=== PATIENT | female | born 1975 | race African-American/Black ===

== ENCOUNTER 2016-07-16 12:40 | Inpatient (IN) | payer MEDICAID ==
[~2016-07-16] VITALS: Ht 175.3 cm; Wt 112.9 kg
[2016-07-16] MEDS: Heparin 5000 units/ml inj SUBQ SCH ×2 (09:00→21:00)
[~2016-07-16 12:40] MED LIST: CATAPRES0.1 MG ORAL; CLINDAMYCIN HC300 MG ORAL; COZAAR50 MG ORAL; IBUPROFEN800 MG ORAL; MOM30 ML ORAL; POTASSIUM CHLO20 ME1 ORAL; POVIDONE IODINE TOPIC; TYLENOL650 MG/20. ORAL; VANCOMYCIN1 GM/2502 IVPB; ZOSYN 3.373.375 GM/1 IVPB
[2016-07-16] MEDS ORDERED: NKM (12:52)
--- NOTE | 2016-07-16 13:42 | Emergency Room Report ---
History of Present Illness General Chief Complaint: Pain Source: Patient (SOM ABRAHAM M.D.) Present Illness HPI 41 YO F with bilateral lower extremity swelling for 10 days. Associated with pain, extreme dried/flakey skin, painful ambulation. Denies fever/chills, rash/ redness to extremities. Had previous history of osteomyelitis per TEGAN, patient states she was tx with Abx. She other finley denies chest pain, SOB, abd pain,. urinary complaints. Doesnt take any medications. Denies ETOH, drug abuse. (SOM ABRAHAM M.D.) Allergies: Coded Allergies: No Known Allergies (Verified Allergy, Unknown, 01/01/11) Patient History Past Medical History: other - osteomyelitis Past Surgical History: none Pertinent Family History: none Social History: Denies: alcohol use, drug use, smoking Last Menstrual Period: no cycle for 2 years Now: No - tubaligation : 9 Para: 1 Immunizations: UTD Reviewed Nursing Documentation: PMH: Agreed, PSxH: Agreed (SOM ABRAHAM M.D.) Reviewed Nursing Documentation: PMH: Agreed, PSxH: Agreed (Jack Barros) Nursing Documentation-PMH Hx Cardiac Problems: Yes Hx Hypertension: Yes Hx Pacemaker: No - LOW POTASSIUM, UTI Hx Asthma: No - Anemia Hx Cancer: No Hx Gastrointestinal Problems: No Hx Neurological Problems: No (SOM ABRAHAM M.D.) Review of Systems All Other Systems: negative except mentioned in HPI (SOM ABRAHAM M.D.) Physical Exam Vital Signs Date Time Temp Pulse Resp B/P Pulse Ox O2 Delivery O2 Flow Rate FiO2 07/16/16 12:42 98.1 115 14 145/94 98 Room Air Sp02 EP Interpretation: reviewed, abnormal General Appearance: normal inspection, well appearing, no apparent distress, alert, GCS 15, non-toxic, obese Head: normocephalic, atraumatic Eyes: bilateral eye EOMI, bilateral eye PERRL ENT: normal ENT inspection, hearing grossly normal, normal voice Neck: normal inspection, full range of motion, supple, no bony tend Respiratory: normal inspection, lungs clear, normal breath sounds, no rhonchi, no respiratory distress, no retraction, no accessory muscle use, no wheezing Cardiovascular #1: regular rate, rhythm, no edema Gastrointestinal: normal inspection, normal bowel sounds, non tender, soft, no guarding, no hernia Genitourinary: no CVA tenderness Musculoskeletal: normal inspection, back normal, normal range of motion, Thai' s Sign negative Neurologic: normal inspection, alert, oriented x3, responsive, route manager III-XII nml as tested, motor strength/tone normal, DTRs symmetric, cerebellar normal, normal gait, speech normal Skin: other - Bilateral lower extremities: Hardness/flakey/dry skin from below knees including whole of lower extremities/feet. ?lack of 2-point discrimination to soles of feet. No difference in appreciable warmth across extremities. No pitting edema. No sign of cellulitis. (SOM ABRAHAM M.D.) Medical Decision Making Diagnostic Impression: Primary Impression: Swelling of both lower extremities ER Course 41YO F with bilateral lower extremity swelling for 10 days. VS notable for tachycardia. Afebrile. 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 Patient continued to have some difficulty breathing. The patient was admitted to the hospital for further treatment. (Jack Barros) EKG Diagnostic Results Rate: tachycardiac Rhythm: NSR ST Segments: no acute changes (SOM ABRAHAM M.D.) Rhythm Strip Diag. Results EP Interpretation: yes Rate: 110 Rhythm: NSR, no PVC's, no ectopy (SOM ABRAHAM M.D.) Last Vital Signs Date Time Temp Pulse Resp B/P Pulse Ox O2 Delivery O2 Flow Rate FiO2 07/16/16 12:42 98.1 115 14 145/94 98 Room Air Status: improved (SOM ABRAHAM M.D.) Status: unchanged (Jack Barros) Disposition: ADMITTED INPATIENT Condition: Serious Referrals: [facility],REFERRING (PCP) SOM ABRAHAM M.D. Jul 16, 2016 13:42 Jack Barros Jul 16, 2016 19:17
[2016-07-16 15:57] LABS: MEAN CORPUSCULAR HEMOGLOBIN 33.9 PG (27.0-31.0); MEAN CORPUSCULAR HGB CONC 31.5 G/DL (32.0-36.0); MEAN CORPUSCULAR VOLUME 108 FL (80-99); MEAN PLATELET VOLUME 7.7 FL (6.5-10.1); PLATELET COUNT 79 K/UL (150-450); RED BLOOD COUNT 2.37 M/UL (4.20-5.40); RED CELL DISTRIBUTION WIDTH 20.7 % (11.6-14.8); WHITE BLOOD COUNT 7.7 K/UL (4.8-10.8)
[2016-07-16 16:30] LABS: ALANINE AMINOTRANSFERASE 12 U/L (3-33); ALBUMIN/GLOBULIN RATIO 0.8 (1.0-2.7); ANION GAP 21 (5-15); ASPARTATE AMINO TRANSFERASE 65 U/L (5-40); CALCIUM 8.5 mg/dL (8.6-10.2); CARBON DIOXIDE 25 mEQ/L (20-30); CHLORIDE 93 mEQ/L (98-107); CREATININE 0.6 mg/dL (0.5-0.9); GLOMERULAR FILTRATION RATE > 60 mL/min (>60); HEMOLYSIS 3; POTASSIUM 3.8 mEQ/L (3.4-4.9); SODIUM 139 mEQ/L (135-145); TOTAL PROTEIN 6.6 g/dL (6.6-8.7)
[2016-07-16 16:41] LABS: CKMB < 1.5 ng/mL (< 3.8)
[2016-07-16 17:16] VITALS: BP 123/73
[2016-07-16 17:24] LABS: ANISOCYTOSIS 2+; EOSINOPHILS % (MANUAL) 1 % (0-3); HYPOCHROMASIA 2+; LYMPHOCYTES % (MANUAL) 33 % (20-45); MACROCYTES 1+; NEUTROPHILS % (MANUAL) 61 % (45-75); TOTAL CELLS COUNTED 100
[2016-07-16 17:25] LABS: BAND NEUTROPHILS % (MANUAL) 0 % (0-8); BASOPHILS % (MANUAL) 0 % (0-2); PLATELET ESTIMATE DECREASED; PLATELET MORPHOLOGY NORMAL
[2016-07-16 18:15] VITALS: BP 117/61
[2016-07-16] MEDS ORDERED: Mylanta II UD 30ml ORAL PRN (21:00)
[2016-07-16] MEDS ORDERED: Miralax 17gm pkt ORAL PRN (21:00)
[2016-07-16] MEDS ORDERED: Zolpidem 5mg tab ORAL PRN (21:00)
[2016-07-16] MEDS ORDERED: Morphine Sulfate 2mg/ml Inj IVP PRN (21:00)
[2016-07-16] MEDS ORDERED: LORazepam Inj 2mg/ml 1ml IV PRN (21:00)
[2016-07-16] MEDS ORDERED: Cefepime HCl 1 GM in D5W 55 ML IV SCH (22:30)
[2016-07-16] MEDS ORDERED: Vancomycin 1250mg in D5W 275ml IVPB SCH (22:30)
[2016-07-16] MEDS ORDERED: Cefepime 1gm vial ONE (23:25)
[2016-07-17] VITALS: BP 135/68
[2016-07-17 04:00] VITALS: BP 149/82
[2016-07-17] MEDS ORDERED: Vancomycin 1250mg in D5W 275ml IVPB SCH (08:00)
[2016-07-17] MEDS ORDERED: Cefepime HCl 1 GM in D5W 55 ML IV SCH (08:00)
[2016-07-17 08:30] VITALS: BP 133/64
[2016-07-17] MEDS: Heparin 5000 units/ml inj SUBQ SCH ×2 (09:00→21:00)
[2016-07-17] MEDS: Cefepime HCl 1 GM in D5W 55 ML IV SCH ×2 (09:10→16:58)
[2016-07-17] MEDS: Vancomycin 1250mg in D5W 275ml IVPB SCH ×2 (09:52→18:00)
--- NOTE | 2016-07-17 10:03 | Cardiology Report ---
APPROVED REPORT EKG Measurement Heart [id number] Sinus tachycardia Incomplete right bundle branch block Borderline ECG
--- NOTE | 2016-07-17 11:41 | Diagnostic Imaging Report ---
Indication: Chest Pain Comparison: 01/05/11 A single view chest radiograph was obtained. Findings: Cardiomediastinal appearance is within normal limits for age. Pulmonary vascularity is appropriate. The diaphragmatic contour is smooth and costophrenic angles are sharp. No pleural effusions are identified. The bones are unremarkable. Impression: No acute findings
[2016-07-17 12:35] VITALS: BP 140/72
--- NOTE | 2016-07-17 13:31 | Consultation ---
Consult Note Consult Note ID CONSULT: Dict# [id number] Assessment/Plan ASSESSMENT: 41 y/o female with: // BLE cellulitis r/o osteomyelitis - h/o multifocal BLE osteomyelitis 10/2015, left AMA, did not complete Rx // Acute on chronic BLE lymphedema - a/v doppler: neg DVT or stenosis // Afebrile without leukocytosis // Thrombocytopenia // Negative HIV // NKDA // Full Code PLAN: - continue IV vancomycin, cefepime d# , transition to PO alternative once clinically improved - check ESR, CRP - monitor CBC, temperatures, canseco-culture if acute change - monitor BMP - BLE elevation, compression Thanks! Will follow KELY MOORE Jul 17, 2016 13:31
[2016-07-17] MEDS ORDERED: chlordiazePOXIDE 25mg Cap ORAL PRN (13:45)
--- NOTE | 2016-07-17 13:54 | History and Physical ---
History of Present Illness General Date patient seen: Jul 17, 2016 Reason for Hospitalization: Pain Present Illness HPI 41 year old female with hx of ETOH abuse presented to ER with bilateral lower extremity swelling for 10 days. Denies fever/chills, rash/redness to extremities. She had previous history of osteomyelitis. she left ama lest admission Allergies: Coded Allergies: No Known Allergies (Verified Allergy, Unknown, 01/01/11) Medication History Scheduled Clindamycin Hcl (Clindamycin Hcl), 300 MG ORAL THREE TIMES A DAY Losartan Potassium* (Cozaar*), 50 MG ORAL Q12HR, (Reported) No Known Medications* (NKM - No Known Medications*), 0 ., (Reported) Scheduled PRN Acetaminophen (Acetaminophen), 500 MG ORAL Q6H PRN for Prn Headache/Temp > 101, (Reported) Patient History Healthcare decision maker pt alert and oriented Resuscitation status Advanced Directive on File Review of Systems All Other Systems: negative except mentioned in HPI Physical Exam General Appearance: WD/WN Lines, tubes and drains: peripheral HEENT: normocephalic, atraumatic Neck: non-tender, normal alignment Respiratory/Chest: chest wall non-tender, lungs clear Cardiovascular/Chest: normal peripheral pulses, normal rate Abdomen: normal bowel sounds, non tender Extremities: severe edema, pitting Neurologic: historic preservationist II-XII grossly normal Last 24 Hour Vital Signs Date Time Temp Pulse Resp B/P Pulse Ox O2 Delivery O2 Flow Rate FiO2 07/17/16 12:35 99.3 75 20 140/72 95 Room Air 07/17/16 08:30 99.5 140 20 133/64 95 Room Air 07/17/16 08:00 114 07/17/16 04:00 114 07/17/16 04:00 115 20 149/82 98 Room Air 07/17/16 00:00 126 20 135/68 96 Room Air 07/17/16 00:00 127 07/16/16 22:36 116 23 118/68 99 Nasal Cannula 2.0 07/16/16 18:15 115 25 117/61 100 Nasal Cannula 2.0 07/16/16 17:16 120 17 123/73 100 Nasal Cannula 2.0 Intake and Output 07/16/16 07/17/16 19:00 07:00 Intake Total 886 ml Balance 886 ml Intake Oral 300 ml IV Total 586 ml # Voids 1 3 Laboratory Tests Test 07/16/16 15:45 White Blood Count 7.7 K/UL (4.8-10.8) Red Blood Count 2.37 M/UL (4.20-5.40) L Hemoglobin 8.5 G/DL (12.0-16.0) L Hematocrit 25.5 % (37.0-47.0) L Mean Corpuscular Volume 108 FL (80-99) H Mean Corpuscular Hemoglobin 33.9 PG (27.0-31.0) H Mean Corpuscular Hemoglobin Concent 31.5 G/DL (32.0-36.0) L Red Cell Distribution Width 20.7 % (11.6-14.8) H Platelet Count 79 K/UL (150-450) L Mean Platelet Volume 7.7 FL (6.5-10.1) Neutrophils (%) (Auto) % (45.0-75.0) Lymphocytes (%) (Auto) % (20.0-45.0) Monocytes (%) (Auto) % (1.0-10.0) Eosinophils (%) (Auto) % (0.0-3.0) Basophils (%) (Auto) % (0.0-2.0) Differential Total Cells Counted 100 Neutrophils % (Manual) 61 % (45-75) Lymphocytes % (Manual) 33 % (20-45) Monocytes % (Manual) 5 % (1-10) Eosinophils % (Manual) 1 % (0-3) Basophils % (Manual) 0 % (0-2) Band Neutrophils 0 % (0-8) Platelet Estimate Decreased L Platelet Morphology Normal Hypochromasia 2+ Anisocytosis 2+ Macrocytosis 1+ Sodium Level 139 mEQ/L (135-145) Potassium Level 3.8 mEQ/L (3.4-4.9) Chloride Level 93 mEQ/L (98-107) L Carbon Dioxide Level 25 mEQ/L (20-30) Anion Gap 21 (5-15) H Blood Urea Nitrogen 5 mg/dL (7-23) L Creatinine 0.6 mg/dL (0.5-0.9) Estimat Glomerular Filtration Rate > 60 mL/min (>60) Glucose Level 65 mg/dL (74-106) L Calcium Level 8.5 mg/dL (8.6-10.2) L Total Bilirubin 0.9 mg/dL (0.0-1.2) Aspartate Amino Transf (AST/SGOT) 65 U/L (5-40) H Alanine Aminotransferase (ALT/SGPT) 12 U/L (3-33) Alkaline Phosphatase 284 U/L (35-104) H Total Creatine Kinase 50 U/L (26-140) Creatine Kinase MB < 1.5 ng/mL (< 3.8) Creatine Kinase MB Relative Index Pro-B-Type Natriuretic Peptide 55 pg/mL (0-125) Total Protein 6.6 g/dL (6.6-8.7) Albumin 3.1 g/dL (3.5-5.2) L Globulin 3.5 g/dL Albumin/Globulin Ratio 0.8 (1.0-2.7) L Height (Feet): 5 Height (Inches): 9.00 Weight (Pounds): 249 Medications Current Medications Medications (Trade) Dose Ordered Sig/Kayla Route PRN Reason Start Time Stop Time Status Last Admin Dose Admin Acetaminophen (Tylenol) 650 mg Q4H PRN ORAL fever 07/16/16 21:00 08/15/16 20:59 Al Hydroxide/Mg Hydroxide (Mylanta II) 30 ml Q6H PRN ORAL dyspepsia 07/16/16 21:00 08/15/16 20:59 Cefepime HCl 1 gm/ Dextrose 55 ml @ 110 mls/hr Q8H IV 07/17/16 09:00 07/24/16 08:59 07/17/16 09:10 Dextrose (Dextrose 50%) STAT PRN IV Hypoglycemia 07/16/16 21:00 08/15/16 20:59 Heparin Sodium (Porcine) (Heparin 5000 units/ml) 5,000 units EVERY 12 HOURS SUBQ 07/16/16 09:00 08/15/16 08:59 Lorazepam (Ativan 2mg/ml 1ml) 0.5 mg Q4H PRN IV For Anxiety 07/16/16 21:00 07/23/16 20:59 Morphine Sulfate (Morphine Sulfate) 1 mg EVERY 4 HOURS PRN IVP For Pain 07/16/16 21:00 07/23/16 20:59 Ondansetron HCl (Zofran) 4 mg Q6H PRN IVP Nausea & Vomiting 07/16/16 21:00 08/15/16 20:59 Polyethylene Glycol (Miralax) 17 gm HSPRN PRN ORAL Constipation 07/16/16 21:00 08/15/16 20:59 Vancomycin HCl 1 ea 1 ea DAILY PRN MISC Per rx protocol 07/16/16 21:00 08/15/16 20:59 Vancomycin HCl/ Dextrose (Vancomycin/D5W) 275 ml @ 183.708 mls/hr Q8H IVPB 07/17/16 10:00 07/22/16 09:59 07/17/16 09:52 Zolpidem Tartrate (Ambien) 5 mg HSPRN PRN ORAL Insomnia 07/16/16 21:00 08/15/16 20:59 Assessment/Plan Problem List: (1) Severe anemia ICD Codes: D64.9 - Anemia, unspecified SNOMED: 324206736 (2) Tachycardia ICD Codes: R00.0 - Tachycardia, unspecified SNOMED: 8663977 (3) ETOH abuse ICD Codes: F10.10 - Alcohol abuse, uncomplicated SNOMED: 82506618, 06171944 (4) Cellulitis ICD Codes: L03.90 - Cellulitis SNOMED: 345130103 Assessment/Plan get echo IV antibiotics ID evaluation anemia w/u. DEA HOLT Jul 17, 2016 13:54
[2016-07-17] MEDS ORDERED: Vitamin B12 1000mcg/ml Inj IM ONE (14:00)
[2016-07-17 16:00] VITALS: BP 153/75
[2016-07-17 16:29] LABS: MEAN CORPUSCULAR HEMOGLOBIN 34.4 PG (27.0-31.0); MEAN CORPUSCULAR HGB CONC 31.1 G/DL (32.0-36.0); MEAN CORPUSCULAR VOLUME 111 FL (80-99); MEAN PLATELET VOLUME 7.2 FL (6.5-10.1); PLATELET COUNT 91 K/UL (150-450); RED BLOOD COUNT 2.15 M/UL (4.20-5.40); RED CELL DISTRIBUTION WIDTH 20.3 % (11.6-14.8); WHITE BLOOD COUNT 7.4 K/UL (4.8-10.8)
[2016-07-17 16:45] LABS: HEMOGLOBIN A1C 4.6 % (< 6.0)
[2016-07-17 16:51] LABS: ALANINE AMINOTRANSFERASE 16 U/L (3-33); ALBUMIN/GLOBULIN RATIO 0.8 (1.0-2.7); ANION GAP 19 (5-15); ASPARTATE AMINO TRANSFERASE 112 U/L (5-40); CALCIUM 8.4 mg/dL (8.6-10.2); CARBON DIOXIDE 26 mEQ/L (20-30); CHLORIDE 92 mEQ/L (98-107); CHOLESTEROL 153 mg/dL (< 200); CHOLESTEROL/HDL RATIO 2.4 (3.3-4.4); CREATININE 0.7 mg/dL (0.5-0.9); GLOMERULAR FILTRATION RATE > 60 mL/min (>60); HEMOLYSIS 22; LDL CHOLESTEROL (CALC.) 60 mg/dL (60-99); POTASSIUM 3.8 mEQ/L (3.4-4.9); SODIUM 137 mEQ/L (135-145); TOTAL PROTEIN 6.6 g/dL (6.6-8.7)
[2016-07-17 16:53] LABS: HEMOLYSIS 237; IRON 85 ug/dL (37-145); TOTAL IRON BINDING CAPACITY 278 ug/dL (250-400)
[2016-07-17 17:32] LABS: BILIRUBIN,DIRECT 0.8 mg/dL (0.1-0.3)
[2016-07-17 18:16] LABS: BAND NEUTROPHILS % (MANUAL) 1 % (0-8); LYMPHOCYTES % (MANUAL) 23 % (20-45); NEUTROPHILS % (MANUAL) 71 % (45-75); TOTAL CELLS COUNTED 100
[2016-07-17 18:17] LABS: ANISOCYTOSIS 2+; HYPOCHROMASIA 1+; MACROCYTES 1+
[2016-07-17 18:18] LABS: BASOPHILS % (MANUAL) 0 % (0-2); EOSINOPHILS % (MANUAL) 0 % (0-3); PLATELET ESTIMATE DECREASED; PLATELET MORPHOLOGY NORMAL
--- NOTE | 2016-07-17 19:18 | Consultation ---
DATE OF CONSULTATION: 07/17/2016 INFECTIOUS DISEASE CONSULTATION REQUESTING PHYSICIAN: Keesha Fox M.D. REASON FOR CONSULTATION: Cellulitis. HISTORY OF PRESENT ILLNESS: This is a 41-year-old female with a history of chronic bilateral lower extremity lymphedema admitted on 07/16/2016 with acute on chronic bilateral lower extremity swelling and pain associated erythema and warmth. No fevers or leukocytosis. No cultures have been sent. Arterial and venous Dopplers are negative for DVT or stenosis. She has been started on empiric vancomycin and cefepime for probable cellulitis and ID is now consulted to assist in management. PAST MEDICAL HISTORY: 1. Chronic bilateral lower extremity lymphedema. 2. Hypertension. 3. Chronic anemia. 4. History of bilateral lower extremity osteomyelitis in 10/2015 for which she left against medical advice and did not complete treatment. 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 ALLERGIES: No known drug allergies. MEDICATIONS: 1. Vancomycin. 2. Cefepime. 3. Subcutaneous heparin. FAMILY HISTORY: Noncontributory. SOCIAL HISTORY: The patient has a history of tobacco abuse. She has family involved in her care. REVIEW OF SYSTEMS: As per history of present illness. Ten systems reviewed. All pertinent positives and negatives noted. PHYSICAL EXAMINATION: VITAL SIGNS: Maximum temperature 99.5 degrees, blood pressure 140/72, heart rate in the 70s, respiratory rate 20, and saturating 95% on room air. GENERAL: No apparent distress. Nontoxic appearing. CARDIOVASCULAR: Regular rate and rhythm. No murmurs. PULMONARY: Clear to auscultation bilaterally. ABDOMEN: Bowel sounds present. Soft, nondistended, and nontender. EXTREMITIES: Bilateral lower extremity with erythema, edema, and warmth. NEUROLOGICAL: Alert and oriented x3, nonfocal. LABORATORY DATA: White blood cell count 7.7, hemoglobin 8.5, and platelets 79,000. Sodium 139, potassium 3.8, chloride 93, bicarbonate 25, BUN 5, and creatinine 0.6. AST 65, ALT 12 and alkaline phosphatase 284. Total bilirubin is 0.9. Albumin is 3.1. Creatine kinase is 50. MICROBIOLOGY: None. IMAGIN. On 07/17/2016, arterial and venous Dopplers negative for DVT or stenosis. 2. On 07/16/2016, chest x-ray no acute findings. ASSESSMENT: 1. Bilateral lower extremity cellulitis rule out osteomyelitis. She has a history of multifocal bilateral lower extremity osteomyelitis in 10/2015 for which she left against medical advice and did not complete treatment. 2. Acute on chronic bilateral lower extremity lymphedema. Arterial and venous Dopplers are negative for deep vein thrombosis or stenosis. 3. Afebrile without leukocytosis. 4. Thrombocytopenia. 5. Negative human immunodeficiency virus. 6. No known drug allergies. 7. Full Code. PLAN: 1. Continue IV vancomycin and cefepime day #1 of 14 and transition to oral alternative once clinically improved. 2. Check ESR and CRP. 3. Monitor CBC and temperatures and panculture if acute change. 4. Monitor BMP. 5. Bilateral lower extremity elevation and compression. Thank you. We will follow. Dale Penaloza M.D. DR: ERIKA JOB#: [id number] CC: Keesha Fox M.D.; Fax#: [phone] Brown M.D; Fax#: [phone]
[2016-07-17 20:00] VITALS: BP 140/72
[2016-07-17] MEDS ORDERED: Iron Sucrose 100 MG in NS 55 ML IVPB SCH (21:00)
[2016-07-17] MEDS ORDERED: Epogen (for non ESRD use) SUBQ SCH (21:00)
[2016-07-18] VITALS (8 sets, daily range): BP systolic 122–149; BP diastolic 62–96
[2016-07-18] MEDS: Cefepime HCl 1 GM in D5W 55 ML IV SCH ×3 (01:00→17:14)
[2016-07-18] MEDS: Vancomycin 1250mg in D5W 275ml IVPB SCH ×2 (03:03→23:46)
[2016-07-18 07:30] LABS: MEAN CORPUSCULAR HEMOGLOBIN 34.9 PG (27.0-31.0); MEAN CORPUSCULAR VOLUME 113 FL (80-99); MEAN PLATELET VOLUME 7.1 FL (6.5-10.1); PLATELET COUNT 99 K/UL (150-450); RED BLOOD COUNT 2.02 M/UL (4.20-5.40); RED CELL DISTRIBUTION WIDTH 20.8 % (11.6-14.8); WHITE BLOOD COUNT 6.3 K/UL (4.8-10.8)
[2016-07-18 07:37] LABS: INR 1.2 (0.9-1.1); PROTHROMBIN TIME 12.7 SEC (9.30-11.50)
[2016-07-18 07:43] LABS: ALANINE AMINOTRANSFERASE 14 U/L (3-33); ALBUMIN/GLOBULIN RATIO 0.9 (1.0-2.7); ANION GAP 17 (5-15); ASPARTATE AMINO TRANSFERASE 65 U/L (5-40); CALCIUM 8.3 mg/dL (8.6-10.2); CARBON DIOXIDE 26 mEQ/L (20-30); CHLORIDE 93 mEQ/L (98-107); CHOLESTEROL 144 mg/dL (< 200); CHOLESTEROL/HDL RATIO 3.1 (3.3-4.4); CREATININE 0.6 mg/dL (0.5-0.9); CRP QUANT 3.1 mg/dL (< 0.5); GLOMERULAR FILTRATION RATE > 60 mL/min (>60); HEMOLYSIS 2; LDL CHOLESTEROL (CALC.) 52 mg/dL (60-99); POTASSIUM 3.4 mEQ/L (3.4-4.9); SODIUM 136 mEQ/L (135-145); TOTAL PROTEIN 6.3 g/dL (6.6-8.7)
[2016-07-18 07:59] LABS: BILIRUBIN,DIRECT 0.8 mg/dL (0.1-0.3)
[2016-07-18 08:25] LABS: HEMOGLOBIN A1C 4.6 % (< 6.0)
[2016-07-18] MEDS: Heparin 5000 units/ml inj SUBQ SCH ×2 (09:00→20:59)
[2016-07-18 12:38] LABS: BAND NEUTROPHILS % (MANUAL) 0 % (0-8); BASOPHILS % (MANUAL) 0 % (0-2); EOSINOPHILS % (MANUAL) 1 % (0-3); LYMPHOCYTES % (MANUAL) 16 % (20-45); NEUTROPHILS % (MANUAL) 77 % (45-75); PLATELET ESTIMATE DECREASED; TOTAL CELLS COUNTED 100
[2016-07-18 12:39] LABS: ANISOCYTOSIS 2+; HYPOCHROMASIA 1+; MACROCYTES 1+; PLATELET MORPHOLOGY NORMAL
[2016-07-18 12:48] LABS: PATH BLOOD SMEAR/OMC SENT TO PATHOLOGIST
[2016-07-18 13:24] LABS: RETICULOCYTE COUNT 0.8 % (0.0-2.0)
--- NOTE | 2016-07-18 14:00 | Infectious Diseases Prog Note ---
Assessment/Plan Assessment/Plan ASSESSMENT: 41 y/o female with: // BLE cellulitis - improved - h/o multifocal BLE osteomyelitis 10/2015, left AMA, did not complete Rx - elevated ESR, CRP // Acute on chronic BLE lymphedema - a/v doppler: neg DVT or stenosis // Afebrile without leukocytosis // Thrombocytopenia // Negative HIV // NKDA // Full Code PLAN: - continue IV vancomycin, cefepime d# 2 / . Ok to complete course with PO keflex at discharge - monitor CBC, temperatures, canseco-culture if acute change - monitor BMP - BLE elevation, compression Subjective Allergies: Coded Allergies: No Known Allergies (Verified Allergy, Unknown, 01/01/11) Subjective remains afebrile. no new complaint persistent tachycardia Objective Vital Signs Last 24 Hour Vital Signs Date Time Temp Pulse Resp B/P Pulse Ox O2 Delivery O2 Flow Rate FiO2 07/18/16 11:46 99.1 109 20 135/73 98 Room Air 07/18/16 08:00 114 07/18/16 07:54 99.3 108 20 128/69 99 Room Air 07/18/16 04:05 98.7 110 18 127/62 95 Room Air 07/18/16 04:04 114 07/18/16 00:06 98.4 114 19 122/69 95 Room Air 07/17/16 23:43 113 07/17/16 20:00 98.6 118 20 140/72 97 Room Air 07/17/16 19:58 115 07/17/16 16:00 111 07/17/16 16:00 99.0 113 20 153/75 98 Room Air Height (Feet): 5 Height (Inches): 9.00 Weight (Pounds): 249 General Appearance: no acute distress Respiratory/Chest: no respiratory distress Cardiovascular: normal rate, regular rhythm Abdomen: normal bowel sounds, soft, non tender, non distended Laboratory Tests Test 07/17/16 15:55 07/18/16 06:25 07/18/16 08:45 White Blood Count 7.4 K/UL (4.8-10.8) 6.3 K/UL (4.8-10.8) Red Blood Count 2.15 M/UL (4.20-5.40) L 2.02 M/UL (4.20-5.40) L Hemoglobin 7.4 G/DL (12.0-16.0) L 7.0 G/DL (12.0-16.0) L Hematocrit 23.8 % (37.0-47.0) L 22.7 % (37.0-47.0) L Mean Corpuscular Volume 111 FL (80-99) H 113 FL (80-99) H Mean Corpuscular Hemoglobin 34.4 PG (27.0-31.0) H 34.9 PG (27.0-31.0) H Mean Corpuscular Hemoglobin Concent 31.1 G/DL (32.0-36.0) L 31.0 G/DL (32.0-36.0) L Red Cell Distribution Width 20.3 % (11.6-14.8) H 20.8 % (11.6-14.8) H Platelet Count 91 K/UL (150-450) L 99 K/UL (150-450) L Mean Platelet Volume 7.2 FL (6.5-10.1) 7.1 FL (6.5-10.1) Neutrophils (%) (Auto) % (45.0-75.0) % (45.0-75.0) Lymphocytes (%) (Auto) % (20.0-45.0) % (20.0-45.0) Monocytes (%) (Auto) % (1.0-10.0) % (1.0-10.0) Eosinophils (%) (Auto) % (0.0-3.0) % (0.0-3.0) Basophils (%) (Auto) % (0.0-2.0) % (0.0-2.0) Differential Total Cells Counted 100 100 Neutrophils % (Manual) 71 % (45-75) 77 % (45-75) H Lymphocytes % (Manual) 23 % (20-45) 16 % (20-45) L Monocytes % (Manual) 5 % (1-10) 6 % (1-10) Eosinophils % (Manual) 0 % (0-3) 1 % (0-3) Basophils % (Manual) 0 % (0-2) 0 % (0-2) Band Neutrophils 1 % (0-8) 0 % (0-8) Platelet Estimate Decreased L Decreased L Platelet Morphology Normal Normal Hypochromasia 1+ 1+ Anisocytosis 2+ 2+ Macrocytosis 1+ 1+ Sodium Level 137 mEQ/L (135-145) 136 mEQ/L (135-145) Potassium Level 3.8 mEQ/L (3.4-4.9) 3.4 mEQ/L (3.4-4.9) Chloride Level 92 mEQ/L (98-107) L 93 mEQ/L (98-107) L Carbon Dioxide Level 26 mEQ/L (20-30) 26 mEQ/L (20-30) Anion Gap 19 (5-15) H 17 (5-15) H Blood Urea Nitrogen 4 mg/dL (7-23) L 3 mg/dL (7-23) L Creatinine 0.7 mg/dL (0.5-0.9) 0.6 mg/dL (0.5-0.9) Estimat Glomerular Filtration Rate > 60 mL/min (>60) > 60 mL/min (>60) Glucose Level 72 mg/dL (74-106) L 85 mg/dL (74-106) Hemoglobin A1c 4.6 % (< 6.0) 4.6 % (< 6.0) Calcium Level 8.4 mg/dL (8.6-10.2) L 8.3 mg/dL (8.6-10.2) L Iron Level 85 ug/dL (37-145) Total Iron Binding Capacity 278 ug/dL (250-400) Percent Iron Saturation 31 % (15-50) Unsaturated Iron Binding 193 ug/dL (112-346) Ferritin 160 ng/mL (13-150) H Total Bilirubin 1.7 mg/dL (0.0-1.2) H 1.4 mg/dL (0.0-1.2) H Direct Bilirubin 0.8 mg/dL (0.1-0.3) H 0.8 mg/dL (0.1-0.3) H Aspartate Amino Transf (AST/SGOT) 112 U/L (5-40) H 65 U/L (5-40) H Alanine Aminotransferase (ALT/SGPT) 16 U/L (3-33) 14 U/L (3-33) Alkaline Phosphatase 309 U/L (35-104) H 316 U/L (35-104) H Total Protein 6.6 g/dL (6.6-8.7) 6.3 g/dL (6.6-8.7) L Albumin 3.1 g/dL (3.5-5.2) L 3.0 g/dL (3.5-5.2) L Globulin 3.5 g/dL 3.3 g/dL Albumin/Globulin Ratio 0.8 (1.0-2.7) L 0.9 (1.0-2.7) L Triglycerides Level 141 mg/dL (< 150) 232 mg/dL (< 150) H Cholesterol Level 153 mg/dL (< 200) 144 mg/dL (< 200) LDL Cholesterol 60 mg/dL (60-99) 52 mg/dL (60-99) L HDL Cholesterol 65 mg/dL (> 60) H 46 mg/dL (> 60) Cholesterol/HDL Ratio 2.4 (3.3-4.4) L 3.1 (3.3-4.4) L Thyroid Stimulating Hormone (TSH) 3.130 uIU/mL (0.300-4.500) 3.080 uIU/mL (0.300-4.500) Erythrocyte Sedimentation Rate 123 MM/HR (0-20) H Reticulocyte Count 0.8 % (0.0-2.0) Prothrombin Time 12.7 SEC (9.30-11.50) H Prothromb Time International Ratio 1.2 (0.9-1.1) H Activated Partial Thromboplast Time 29 SEC (23-33) Lactate Dehydrogenase 255 U/L (135-230) H C-Reactive Protein, Quantitative 3.1 mg/dL (< 0.5) H Carcinoembryonic Antigen 4.0 ng/mL H Vitamin B12 Level > 2000 pg/mL (211-946) H Folate Pending Vancomycin Level Trough 28.3 ug/mL (5.0-12.0) H Current Medications Medications (Trade) Dose Ordered Sig/Kayla Route PRN Reason Start Time Stop Time Status Last Admin Dose Admin Acetaminophen (Tylenol) 650 mg Q4H PRN ORAL fever 07/16/16 21:00 08/15/16 20:59 Al Hydroxide/Mg Hydroxide (Mylanta II) 30 ml Q6H PRN ORAL dyspepsia 07/16/16 21:00 08/15/16 20:59 Cefepime HCl/ Dextrose (Maxipime/D5W) 55 ml @ 110 mls/hr Q8H IV 07/17/16 09:00 07/24/16 08:59 07/18/16 09:34 Chlordiazepoxide (Librium) 25 mg Q6H PRN ORAL Agitation 07/17/16 13:45 07/24/16 13:44 Dextrose (Dextrose 50%) STAT PRN IV Hypoglycemia 07/16/16 21:00 08/15/16 20:59 Epoetin Kuldip (Procrit (for non ESRD use)) 10,000 units SUN-SUN-SUN SUBQ 07/17/16 21:00 08/16/16 20:59 07/17/16 22:29 Folic Acid (Folate) 1 mg DAILY ORAL 07/18/16 14:00 08/17/16 13:59 07/18/16 13:33 Heparin Sodium (Porcine) (Heparin 5000 units/ml) 5,000 units EVERY 12 HOURS SUBQ 07/16/16 09:00 08/15/16 08:59 Lorazepam (Ativan 2mg/ml 1ml) 0.5 mg Q4H PRN IV For Anxiety 07/16/16 21:00 07/23/16 20:59 Morphine Sulfate (Morphine Sulfate) 1 mg EVERY 4 HOURS PRN IVP For Pain 07/16/16 21:00 07/23/16 20:59 Ondansetron HCl (Zofran) 4 mg Q6H PRN IVP Nausea & Vomiting 07/16/16 21:00 08/15/16 20:59 Polyethylene Glycol (Miralax) 17 gm HSPRN PRN ORAL Constipation 07/16/16 21:00 08/15/16 20:59 Vancomycin HCl 1 ea 1 ea DAILY PRN MISC Per rx protocol 07/16/16 21:00 08/15/16 20:59 Zolpidem Tartrate (Ambien) 5 mg HSPRN PRN ORAL Insomnia 07/16/16 21:00 08/15/16 20:59 KELY MOORE Jul 18, 2016 14:00
--- NOTE | 2016-07-18 15:25 | Pulmonology Progress Note ---
Assessment/Plan Problems: (1) Severe anemia (2) Tachycardia (3) ETOH abuse (4) Cellulitis Assessment/Plan h/h in am continue antibiotics dc home in am if h/h stable on oral antibiotics Subjective ROS Limited/Unobtainable: No Interval Events: h/h was low again, receiving blood again Constitutional: Reports: no symptoms Allergies: Coded Allergies: No Known Allergies (Verified Allergy, Unknown, 01/01/11) Objective Last 24 Hour Vital Signs Date Time Temp Pulse Resp B/P Pulse Ox O2 Delivery O2 Flow Rate FiO2 07/18/16 11:46 99.1 109 20 135/73 98 Room Air 07/18/16 08:00 114 07/18/16 07:54 99.3 108 20 128/69 99 Room Air 07/18/16 04:05 98.7 110 18 127/62 95 Room Air 07/18/16 04:04 114 07/18/16 00:06 98.4 114 19 122/69 95 Room Air 07/17/16 23:43 113 07/17/16 20:00 98.6 118 20 140/72 97 Room Air 07/17/16 19:58 115 07/17/16 16:00 111 07/17/16 16:00 99.0 113 20 153/75 98 Room Air Intake and Output 07/17/16 07/18/16 19:00 07:00 Intake Total 570 ml 330 ml Balance 570 ml 330 ml Intake Oral 240 ml IV Total 330 ml 330 ml # Voids 2 3 # Bowel Movements 1 General Appearance: WD/WN HEENT: normocephalic, atraumatic Respiratory/Chest: chest wall non-tender, lungs clear Cardiovascular: normal peripheral pulses, normal rate Abdomen: normal bowel sounds, no organomegaly Extremities: no cyanosis, no clubbing 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 Laboratory Tests 07/17/16 15:55: White Blood Count 7.4, Red Blood Count 2.15L, Hemoglobin 7.4L, Hematocrit 23.8L , Mean Corpuscular Volume 111H, Mean Corpuscular Hemoglobin 34.4H, Mean Corpuscular Hemoglobin Concent 31.1L, Red Cell Distribution Width 20.3H, Platelet Count 91L, Mean Platelet Volume 7.2, Neutrophils (%) (Auto) , Lymphocytes (%) (Auto) , Monocytes (%) (Auto) , Eosinophils (%) (Auto) , Basophils (%) (Auto) , Differential Total Cells Counted 100, Neutrophils % ( Manual) 71, Lymphocytes % (Manual) 23, Monocytes % (Manual) 5, Eosinophils % ( Manual) 0, Basophils % (Manual) 0, Band Neutrophils 1, Platelet Estimate DecreasedL, Platelet Morphology Normal, Hypochromasia 1+, Anisocytosis 2+, Macrocytosis 1+, Sodium Level 137, Potassium Level 3.8, Chloride Level 92L, Carbon Dioxide Level 26, Anion Gap 19H, Blood Urea Nitrogen 4L, Creatinine 0.7, Estimat Glomerular Filtration Rate > 60, Glucose Level 72L, Hemoglobin A1c 4.6, Calcium Level 8.4L, Iron Level 85, Total Iron Binding Capacity 278, Percent Iron Saturation 31, Unsaturated Iron Binding 193, Ferritin 160H, Total Bilirubin 1.7H, Direct Bilirubin 0.8H, Aspartate Amino Transf (AST/SGOT) 112H, Alanine Aminotransferase (ALT/SGPT) 16, Alkaline Phosphatase 309H, Total Protein 6.6, Albumin 3.1L, Globulin 3.5, Albumin/Globulin Ratio 0.8L, Triglycerides Level 141, Cholesterol Level 153, LDL Cholesterol 60, HDL Cholesterol 65H, Cholesterol/HDL Ratio 2.4L, Thyroid Stimulating Hormone (TSH) 3.130 07/18/16 06:25: White Blood Count 6.3, Red Blood Count 2.02L, Hemoglobin 7.0L, Hematocrit 22.7L , Mean Corpuscular Volume 113H, Mean Corpuscular Hemoglobin 34.9H, Mean Corpuscular Hemoglobin Concent 31.0L, Red Cell Distribution Width 20.8H, Platelet Count 99L, Mean Platelet Volume 7.1, Neutrophils (%) (Auto) , Lymphocytes (%) (Auto) , Monocytes (%) (Auto) , Eosinophils (%) (Auto) , Basophils (%) (Auto) , Differential Total Cells Counted 100, Neutrophils % ( Manual) 77H, Lymphocytes % (Manual) 16L, Monocytes % (Manual) 6, Eosinophils % ( Manual) 1, Basophils % (Manual) 0, Band Neutrophils 0, Platelet Estimate DecreasedL, Platelet Morphology Normal, Hypochromasia 1+, Anisocytosis 2+, Macrocytosis 1+, Sodium Level 136, Potassium Level 3.4, Chloride Level 93L, Carbon Dioxide Level 26, Anion Gap 17H, Blood Urea Nitrogen 3L, Creatinine 0.6, Estimat Glomerular Filtration Rate > 60, Glucose Level 85, Hemoglobin A1c 4.6, Calcium Level 8.3L, Total Bilirubin 1.4H, Direct Bilirubin 0.8H, Aspartate Amino Transf (AST/SGOT) 65H, Alanine Aminotransferase (ALT/SGPT) 14, Alkaline Phosphatase 316H, Total Protein 6.3L, Albumin 3.0L, Globulin 3.3, Albumin/ Globulin Ratio 0.9L, Triglycerides Level 232H, Cholesterol Level 144, LDL Cholesterol 52L, HDL Cholesterol 46, Cholesterol/HDL Ratio 3.1L, Thyroid Stimulating Hormone (TSH) 3.080, Erythrocyte Sedimentation Rate 123H, Reticulocyte Count 0.8, Prothrombin Time 12.7H, Prothromb Time International Ratio 1.2H, Activated Partial Thromboplast Time 29, Lactate Dehydrogenase 255H, C-Reactive Protein, Quantitative 3.1H, Carcinoembryonic Antigen 4.0H, Vitamin B12 Level > 2000H, Folate [Pending] 07/18/16 08:45: Vancomycin Level Trough 28.3H Current Medications Medications (Trade) Dose Ordered Sig/Kayla Route PRN Reason Start Time Stop Time Status Last Admin Dose Admin Acetaminophen (Tylenol) 650 mg Q4H PRN ORAL fever 07/16/16 21:00 08/15/16 20:59 Al Hydroxide/Mg Hydroxide (Mylanta II) 30 ml Q6H PRN ORAL dyspepsia 07/16/16 21:00 08/15/16 20:59 Cefepime HCl/ Dextrose (Maxipime/D5W) 55 ml @ 110 mls/hr Q8H IV 07/17/16 09:00 07/24/16 08:59 07/18/16 09:34 Chlordiazepoxide (Librium) 25 mg Q6H PRN ORAL Agitation 07/17/16 13:45 07/24/16 13:44 Dextrose (Dextrose 50%) STAT PRN IV Hypoglycemia 07/16/16 21:00 08/15/16 20:59 Epoetin Kuldip (Procrit (for non ESRD use)) 10,000 units MON-WED-FRI SUBQ 07/17/16 21:00 08/16/16 20:59 07/17/16 22:29 Folic Acid (Folate) 1 mg DAILY ORAL 07/18/16 14:00 08/17/16 13:59 07/18/16 13:33 Heparin Sodium (Porcine) (Heparin 5000 units/ml) 5,000 units EVERY 12 HOURS SUBQ 07/16/16 09:00 08/15/16 08:59 Lorazepam (Ativan 2mg/ml 1ml) 0.5 mg Q4H PRN IV For Anxiety 07/16/16 21:00 07/23/16 20:59 Morphine Sulfate (Morphine Sulfate) 1 mg EVERY 4 HOURS PRN IVP For Pain 07/16/16 21:00 07/23/16 20:59 Ondansetron HCl (Zofran) 4 mg Q6H PRN IVP Nausea & Vomiting 07/16/16 21:00 08/15/16 20:59 Polyethylene Glycol (Miralax) 17 gm HSPRN PRN ORAL Constipation 07/16/16 21:00 08/15/16 20:59 Vancomycin HCl 1 ea 1 ea DAILY PRN MISC Per rx protocol 07/16/16 21:00 08/15/16 20:59 Zolpidem Tartrate (Ambien) 5 mg HSPRN PRN ORAL Insomnia 07/16/16 21:00 08/15/16 20:59 DEA HOLT Jul 18, 2016 15:25
[2016-07-18] MEDS ORDERED: chlordiazePOXIDE 25mg Cap ORAL PRN (18:30)
[2016-07-18] MEDS ORDERED: LORazepam Inj 2mg/ml 1ml IV PRN (18:30)
[2016-07-18] MEDS ORDERED: Mylanta II UD 30ml ORAL PRN (18:30)
[2016-07-18] MEDS ORDERED: Morphine Sulfate 2mg/ml Inj IVP PRN (18:30)
[2016-07-18] MEDS ORDERED: Miralax 17gm pkt ORAL PRN (21:00)
[2016-07-18] MEDS ORDERED: Zolpidem 5mg tab ORAL PRN (21:00)
[2016-07-19] MEDS: Cefepime HCl 1 GM in D5W 55 ML IV SCH ×2 (01:48→08:55)
[2016-07-19 04:00] VITALS: BP 153/80
[2016-07-19 07:05] LABS: BASOPHILS % (AUTO) 0.4 % (0.0-2.0); LYMPHOCYTES % (AUTO) 19.2 % (20.0-45.0); MEAN CORPUSCULAR HEMOGLOBIN 33.5 PG (27.0-31.0); MEAN CORPUSCULAR HGB CONC 31.2 G/DL (32.0-36.0); MEAN CORPUSCULAR VOLUME 107 FL (80-99); MEAN PLATELET VOLUME 7.3 FL (6.5-10.1); MONOCYTES % (AUTO) 9.6 % (1.0-10.0); NEUTROPHILS % (AUTO) 69.9 % (45.0-75.0); PLATELET COUNT 128 K/UL (150-450); RED BLOOD COUNT 2.47 M/UL (4.20-5.40); RED CELL DISTRIBUTION WIDTH 21.9 % (11.6-14.8); WHITE BLOOD COUNT 6.1 K/UL (4.8-10.8)
[2016-07-19 07:20] LABS: ALANINE AMINOTRANSFERASE 12 U/L (3-33); ALBUMIN/GLOBULIN RATIO 0.8 (1.0-2.7); ANION GAP 15 (5-15); ASPARTATE AMINO TRANSFERASE 41 U/L (5-40); CALCIUM 8.5 mg/dL (8.6-10.2); CARBON DIOXIDE 28 mEQ/L (20-30); CHLORIDE 94 mEQ/L (98-107); CREATININE 0.5 mg/dL (0.5-0.9); GLOMERULAR FILTRATION RATE > 60 mL/min (>60); HEMOLYSIS 2; MAGNESIUM 1.2 mg/dL (1.7-2.5); PHOSPHORUS 2.7 mg/dL (2.5-4.8); POTASSIUM 3.3 mEQ/L (3.4-4.9); SODIUM 137 mEQ/L (135-145); TOTAL PROTEIN 6.5 g/dL (6.6-8.7)
[2016-07-19 07:22] LABS: INR 1.3 (0.9-1.1); PROTHROMBIN TIME 12.8 SEC (9.30-11.50)
[2016-07-19 07:49] LABS: BILIRUBIN,DIRECT 0.6 mg/dL (0.1-0.3)
[2016-07-19 08:36] VITALS: BP 139/81
[2016-07-19] MEDS: Heparin 5000 units/ml inj SUBQ SCH (09:00)
[2016-07-19 11:56] VITALS: BP 144/94
[2016-07-19] MEDS: Vancomycin 1250mg in D5W 275ml IVPB SCH (12:33)
--- NOTE | 2016-07-19 14:24 | Infectious Diseases Prog Note ---
Assessment/Plan Assessment/Plan ASSESSMENT: 41 y/o female with: // BLE cellulitis - improved - h/o multifocal BLE osteomyelitis 10/2015, left AMA, did not complete Rx - elevated ESR, CRP // Acute on chronic BLE lymphedema - a/v doppler: neg DVT or stenosis // Low grade fever, no leukocytosis // N/V // Thrombocytopenia // Negative HIV // NKDA // Full Code PLAN: - continue IV vancomycin, cefepime d# . Ok to complete course with PO keflex at discharge - monitor CBC, temperatures, canseco-culture if acute change - monitor BMP - BLE elevation, compression Subjective Allergies: Coded Allergies: No Known Allergies (Verified Allergy, Unknown, 01/01/11) Subjective remains afebrile. no new complaint low grade fevers last night, c/o N/V Objective Vital Signs Last 24 Hour Vital Signs Date Time Temp Pulse Resp B/P Pulse Ox O2 Delivery O2 Flow Rate FiO2 07/19/16 11:56 98.6 104 19 144/94 98 Room Air 07/19/16 08:36 99.1 104 20 139/81 95 Room Air 07/19/16 04:00 97.8 112 20 153/80 95 Room Air 07/18/16 23:59 96.7 07/18/16 23:54 96.7 118 20 149/85 100 Room Air 07/18/16 20:00 100.2 117 20 143/82 96 Room Air 07/18/16 19:00 100.6 100 20 129/73 96 Room Air 07/18/16 16:00 100.0 112 18 146/96 96 Room Air 07/18/16 16:00 108 Height (Feet): 5 Height (Inches): 9.00 Weight (Pounds): 249 General Appearance: no acute distress Respiratory/Chest: no respiratory distress Cardiovascular: normal rate, regular rhythm Abdomen: normal bowel sounds, soft, non tender, non distended Extremities: other - edema Laboratory Tests Test 07/18/16 21:08 07/19/16 05:45 Random Vancomycin Level 12.3 ug/mL White Blood Count 6.1 K/UL (4.8-10.8) Red Blood Count 2.47 M/UL (4.20-5.40) L Hemoglobin 8.3 G/DL (12.0-16.0) L Hematocrit 26.5 % (37.0-47.0) L Mean Corpuscular Volume 107 FL (80-99) H Mean Corpuscular Hemoglobin 33.5 PG (27.0-31.0) H Mean Corpuscular Hemoglobin Concent 31.2 G/DL (32.0-36.0) L Red Cell Distribution Width 21.9 % (11.6-14.8) H Platelet Count 128 K/UL (150-450) L Mean Platelet Volume 7.3 FL (6.5-10.1) Neutrophils (%) (Auto) 69.9 % (45.0-75.0) Lymphocytes (%) (Auto) 19.2 % (20.0-45.0) L Monocytes (%) (Auto) 9.6 % (1.0-10.0) Eosinophils (%) (Auto) 1.0 % (0.0-3.0) Basophils (%) (Auto) 0.4 % (0.0-2.0) Prothrombin Time 12.8 SEC (9.30-11.50) H Prothromb Time International Ratio 1.3 (0.9-1.1) H Activated Partial Thromboplast Time 30 SEC (23-33) Sodium Level 137 mEQ/L (135-145) Potassium Level 3.3 mEQ/L (3.4-4.9) L Chloride Level 94 mEQ/L (98-107) L Carbon Dioxide Level 28 mEQ/L (20-30) Anion Gap 15 (5-15) Blood Urea Nitrogen 3 mg/dL (7-23) L Creatinine 0.5 mg/dL (0.5-0.9) Estimat Glomerular Filtration Rate > 60 mL/min (>60) Glucose Level 88 mg/dL (74-106) Calcium Level 8.5 mg/dL (8.6-10.2) L Phosphorus Level 2.7 mg/dL (2.5-4.8) Magnesium Level 1.2 mg/dL (1.7-2.5) L Total Bilirubin 1.4 mg/dL (0.0-1.2) H Direct Bilirubin 0.6 mg/dL (0.1-0.3) H Aspartate Amino Transf (AST/SGOT) 41 U/L (5-40) H Alanine Aminotransferase (ALT/SGPT) 12 U/L (3-33) Alkaline Phosphatase 321 U/L (35-104) H Total Protein 6.5 g/dL (6.6-8.7) L Albumin 2.9 g/dL (3.5-5.2) L Globulin 3.6 g/dL Albumin/Globulin Ratio 0.8 (1.0-2.7) L Current Medications Medications (Trade) Dose Ordered Sig/Kayla Route PRN Reason Start Time Stop Time Status Last Admin Dose Admin Acetaminophen (Tylenol) 650 mg Q4H PRN ORAL fever 07/18/16 18:30 08/17/16 18:29 07/18/16 23:00 Al Hydroxide/Mg Hydroxide (Mylanta II) 30 ml Q6H PRN ORAL dyspepsia 07/18/16 18:30 08/17/16 18:29 Cefepime HCl/ Dextrose (Maxipime/D5W) 55 ml @ 110 mls/hr Q8H IV 07/19/16 01:00 07/26/16 00:59 07/19/16 08:55 Chlordiazepoxide (Librium) 25 mg Q6H PRN ORAL Agitation 07/18/16 18:30 07/25/16 18:29 Dextrose (Dextrose 50%) STAT PRN IV Hypoglycemia 07/18/16 18:30 08/17/16 18:29 Diphenhydramine HCl 50 mg 50 mg Q8HR PRN ORAL Itching 07/18/16 21:30 08/17/16 21:29 Epoetin Kuldip (Procrit (for non ESRD use)) 10,000 units SUN-SUN-SUN SUBQ 07/19/16 21:00 08/18/16 20:59 Folic Acid (Folate) 1 mg DAILY ORAL 07/19/16 09:00 08/18/16 08:59 07/19/16 08:55 Heparin Sodium (Porcine) (Heparin 5000 units/ml) 5,000 units EVERY 12 HOURS SUBQ 07/18/16 21:00 08/17/16 20:59 Lorazepam (Ativan 2mg/ml 1ml) 0.5 mg Q4H PRN IV For Anxiety 07/18/16 18:30 07/25/16 18:29 Morphine Sulfate (Morphine Sulfate) 1 mg Q4H PRN IVP For Pain 07/18/16 18:30 07/25/16 18:29 Ondansetron HCl (Zofran) 4 mg Q6H PRN IVP Nausea & Vomiting 07/18/16 18:30 08/17/16 18:29 Polyethylene Glycol (Miralax) 17 gm HSPRN PRN ORAL Constipation 07/18/16 21:00 08/17/16 20:59 Vancomycin HCl (Vanco rx to dose) 1 ea DAILY PRN MISC Per rx protocol 07/18/16 18:30 08/17/16 18:29 Vancomycin HCl/ Dextrose (Vancomycin/D5W) 275 ml @ 183.708 mls/hr Q12HR@0000,1200 IVPB 07/19/16 00:00 07/24/16 00:00 07/19/16 12:33 Zolpidem Tartrate (Ambien) 5 mg HSPRN PRN ORAL Insomnia 07/18/16 21:00 08/17/16 20:59 KELY MOORE Jul 19, 2016 14:24
[2016-07-19] MEDS ORDERED: CEPHALEXIN500 MG ORAL (15:55)
[2016-07-19 16:00] VITALS: BP 151/96
--- NOTE | 2016-07-19 16:03 | Pulmonology Progress Note ---
Assessment/Plan Problems: (1) Severe anemia (2) Tachycardia (3) ETOH abuse (4) Cellulitis Assessment/Plan h/h better continue antibiotics dc home today wtihoral antibiotics Subjective ROS Limited/Unobtainable: Yes Interval Events: doing better Allergies: Coded Allergies: No Known Allergies (Verified Allergy, Unknown, 01/01/11) Objective Last 24 Hour Vital Signs Date Time Temp Pulse Resp B/P Pulse Ox O2 Delivery O2 Flow Rate FiO2 07/19/16 11:56 98.6 104 19 144/94 98 Room Air 07/19/16 08:36 99.1 104 20 139/81 95 Room Air 07/19/16 04:00 97.8 112 20 153/80 95 Room Air 07/18/16 23:59 96.7 07/18/16 23:54 96.7 118 20 149/85 100 Room Air 07/18/16 20:00 100.2 117 20 143/82 96 Room Air 07/18/16 19:00 100.6 100 20 129/73 96 Room Air Intake and Output 07/18/16 07/19/16 19:00 07:00 Intake Total 175 ml Balance 175 ml Intake Oral 120 ml IV Total 55 ml # Voids 2 7 # Bowel Movements 1 General Appearance: WD/WN HEENT: normocephalic, atraumatic Respiratory/Chest: chest wall non-tender, normal breath sounds Cardiovascular: normal rate Abdomen: normal bowel sounds, soft, non tender Extremities: no cyanosis, no clubbing Laboratory Tests 07/18/16 21:08: Random Vancomycin Level 12.3 07/19/16 05:45: White Blood Count 6.1, Red Blood Count 2.47L, Hemoglobin 8.3L, Hematocrit 26.5L , Mean Corpuscular Volume 107H, Mean Corpuscular Hemoglobin 33.5H, Mean Corpuscular Hemoglobin Concent 31.2L, Red Cell Distribution Width 21.9H, Platelet Count 128L, Mean Platelet Volume 7.3, Neutrophils (%) (Auto) 69.9, Lymphocytes (%) (Auto) 19.2L, Monocytes (%) (Auto) 9.6, Eosinophils (%) (Auto) 1.0, Basophils (%) (Auto) 0.4, Prothrombin Time 12.8H, Prothromb Time International Ratio 1.3H, Activated Partial Thromboplast Time 30, Sodium Level 137, Potassium Level 3.3L, Chloride Level 94L, Carbon Dioxide Level 28, Anion Gap 15, Blood Urea Nitrogen 3L, Creatinine 0.5, Estimat Glomerular Filtration Rate > 60, Glucose Level 88, Calcium Level 8.5L, Phosphorus Level 2.7, Magnesium Level 1.2L, Total Bilirubin 1.4H, Direct Bilirubin 0.6H, Aspartate Amino Transf (AST/SGOT) 41H, Alanine Aminotransferase (ALT/SGPT) 12, Alkaline Phosphatase 321H, Total Protein 6.5L, Albumin 2.9L, Globulin 3.6, Albumin/ Globulin Ratio 0.8L Current Medications Medications (Trade) Dose Ordered Sig/Kayla Route PRN Reason Start Time Stop Time Status Last Admin Dose Admin Acetaminophen (Tylenol) 650 mg Q4H PRN ORAL fever 07/18/16 18:30 08/17/16 18:29 07/18/16 23:00 Al Hydroxide/Mg Hydroxide (Mylanta II) 30 ml Q6H PRN ORAL dyspepsia 07/18/16 18:30 08/17/16 18:29 Cefepime HCl/ Dextrose (Maxipime/D5W) 55 ml @ 110 mls/hr Q8H IV 07/19/16 01:00 07/26/16 00:59 07/19/16 08:55 Chlordiazepoxide (Librium) 25 mg Q6H PRN ORAL Agitation 07/18/16 18:30 07/25/16 18:29 Dextrose (Dextrose 50%) STAT PRN IV Hypoglycemia 07/18/16 18:30 08/17/16 18:29 Diphenhydramine HCl 50 mg 50 mg Q8HR PRN ORAL Itching 07/18/16 21:30 08/17/16 21:29 Epoetin Kuldip (Procrit (for non ESRD use)) 10,000 units SUN-WED-SUN SUBQ 07/19/16 21:00 08/18/16 20:59 Folic Acid (Folate) 1 mg DAILY ORAL 07/19/16 09:00 08/18/16 08:59 07/19/16 08:55 Heparin Sodium (Porcine) (Heparin 5000 units/ml) 5,000 units EVERY 12 HOURS SUBQ 07/18/16 21:00 08/17/16 20:59 Lorazepam (Ativan 2mg/ml 1ml) 0.5 mg Q4H PRN IV For Anxiety 07/18/16 18:30 07/25/16 18:29 Morphine Sulfate (Morphine Sulfate) 1 mg Q4H PRN IVP For Pain 07/18/16 18:30 07/25/16 18:29 Ondansetron HCl (Zofran) 4 mg Q6H PRN IVP Nausea & Vomiting 07/18/16 18:30 08/17/16 18:29 Polyethylene Glycol (Miralax) 17 gm HSPRN PRN ORAL Constipation 07/18/16 21:00 08/17/16 20:59 Vancomycin HCl (Vanco rx to dose) 1 ea DAILY PRN MISC Per rx protocol 07/18/16 18:30 08/17/16 18:29 Vancomycin HCl/ Dextrose (Vancomycin/D5W) 275 ml @ 183.708 mls/hr Q12HR@0000,1200 IVPB 07/19/16 00:00 07/24/16 00:00 07/19/16 12:33 Zolpidem Tartrate (Ambien) 5 mg HSPRN PRN ORAL Insomnia 07/18/16 21:00 08/17/16 20:59 DEA HOLT Jul 19, 2016 16:03
[2016-07-19] MEDS ORDERED: Sterile Water Irrig 1000ml IRRIG ONE (18:14)
[2016-07-19] MEDS ORDERED: Tubing IV Secondary IV ONE (18:14)
[2016-07-19] MEDS ORDERED: NS 275ml ONE ×2 (18:14)
[2016-07-19] MEDS ORDERED: Tubing Blood Filter IV ONE (18:14)
[2016-07-19] MEDS ORDERED: Epogen (for non ESRD use) SUBQ SCH (21:00)
--- NOTE | 2016-07-21 06:12 | Discharge Summary ---
Discharge Summary Hospital Course Date of Admission Jul 16, 2016 at 18:13 Date of Discharge Jul 19, 2016 at 18:15 Admitting Diagnosis symptomatic anemia KHRIS Flynn is a 41 year old female who was admitted on Jul 16, 2016 at 18:13 for Symptomatic Anemia Hospital Course [id number] Discharge Discharge Disposition Patient was discharged to Home (01) Discharge Diagnoses: Emily Flores NP Jul 21, 2016 06:12
--- NOTE | 2016-07-21 08:58 | Discharge Summary 2 SIG ---
DATE OF ADMISSION: 07/16/2016 DATE OF DISCHARGE: 07/19/2016 AEROSOL SUPERVISOR: Dale Penaloza M.D. BRIEF HOSPITAL COURSE: The patient is a 41-year-old female with history of ETOH abuse, presented to ER complaining of bilateral lower extremity swelling for 10 days. She had a previous history of osteomyelitis and she left against medical advice at last admission. She was admitted for cellulitis and Dr. Penaloza was consulted. She was started on IV vancomycin and cefepime. Duplex scan was negative for DVT or stenosis and she was eventually discharged home to complete p.o. Keflex at discharge. FINAL DIAGNOSES: 1. Bilateral lower extremity cellulitis. 2. Acute on chronic bilateral lower extremity lymphedema. 3. Thrombocytopenia. 4. ETOH abuse. 5. Acute anemia, status post blood transfusion. 6. Negative human immunodeficiency virus. Keesha Fox M.D. I have been assigned to dictate discharge summary on this account and I was not involved in the patient's management. Emily Flores N.P. DR: DEON JOB#: [id number] CC:
--- NOTE | 2016-08-02 09:46 | Diagnostic Imaging Report ---
APPROVED REPORT CPT Code: 30886 Present Symptoms Lower Extremity Pain: Left BILATERAL: Imaging reveals a patent deep venous system bilaterally. There is no evidence of thrombus within the femoral, popliteal or tibial segments. The greater saphenous veins are also within normal limits. Doppler indicates normal spontaneous flow within these segments.
--- NOTE | 2016-08-02 09:46 | Diagnostic Imaging Report ---
APPROVED REPORT CPT Code: 04423 Symptoms Comments: Pain Comments Edema Technically difficult study due to edema and body habitus. BILATERAL: Common femoral artery waveform analysis is mildly elevated at rest. Color flow duplex sonography reveals patency of the superficial femoral, popliteal, and tibial arteries, there is no evidence of stenosis or occlusion within these segments. DURAN is within normal limits as follows: 1.0 (right leg) and 0.96 (left leg). Doppler tibial artery waveform analysis is also within normal limits, bilaterally. Note: The Doppler velocity was mildly elevated, with monophasic flow (common to popliteal artery).
== END 2016-07-19 18:15 | disposition home or self-care (01) | DRG 383 ==
LOC: ENRESERVDT → ENRESERVTM → EMR 13:10 → 2E 18:13 → EDBEDREQ 21:26 → 2E 07-18 14:27 → 4E 07-18 18:17
PROC: 30233N1 Transfusion of Nonautologous Red Blood Cells into Peripheral Vein, Percutaneous Approach (ICD-10-PCS; principal; 2016-07-18)
DX: L03.116 Cellulitis of left lower limb (principal); D69.6 Thrombocytopenia, unspecified; I10 Essential (primary) hypertension; F10.10 Alcohol abuse, uncomplicated; L03.115 Cellulitis of right lower limb; D64.9 Anemia, unspecified; E66.01 Morbid (severe) obesity due to excess calories; Z68.36 Body mass index [BMI] 36.0-36.9, adult
CPT/HCPCS: 36415; 71010; 80053; 80061; 80202; 82248; 82378; 82550; 82553; 82607; 82728; 82746; 83036; 83540; 83550; 83615; 83735; 83880; 84100; 84443; 85007; 85025; 85044; 85060; 85610; 85651; 85730; 86140; 86850; 86900; 86901; 86920; 93005; 93925; 93970; J8499